=== PATIENT | female | born 1945 | race African-American/Black ===

== ENCOUNTER 2017-02-07 15:01 | Emergency (ER) | payer OTHER, MEDICAID ==
[~2017-02-07] VITALS: Ht 162.6 cm; Wt 93.5 kg
[~2017-02-07 15:01] MED LIST: AMLO10 PO; LISI-515 PO
[2017-02-07 15:27] VITALS: BP 196/95; PULSE 76; RESP 16; TEMP 98.6; O2SAT 99
--- NOTE | 2017-02-07 15:39 | PD ---
Physical Exam Date Seen by Provider: Feb 07, 2017 Time Seen by Provider: 15:38 Narrative 71 yo female here for right sided headaches since AM. Woke up like this. pain is 8/10. No CVA or ACS history. No injury. Pain comes and goes. Not going away. Seen by Urgent care and sent here for eval. Vitals stable in triage. Awaiting bed placement. Data Data Last Documented VS Vital Signs Date Time Temp Pulse Resp B/P (MAP) Pulse Ox O2 Delivery O2 Flow Rate FiO2 02/07/17 15:27 98.6 76 16 196/95 (128) 99 Room Air [facility] Medical Record Reviewed: Yes Supervised Visit with RAHEL: No Ken Lemus Feb 07, 2017 15:39
[2017-02-07 16:00] LABS: AUTOMATED NEUTROPHIL # 2.4 TH/MM3 (1.8-7.7); BASOPHIL % 0.8 % (0.0-2.0); EOSINOPHIL % 1.1 % (0.0-4.0); HEMATOCRIT 38.2 % (35.0-46.0); HEMO FLAGS DIFF FINAL; LYMPH % 37.1 % (9.0-44.0); LYMPHOCYTE # 1.6 TH/MM3 (1.0-4.8); MEAN CELL VOLUME 89.7 FL (80.0-100.0); MEAN CORPUSCULAR HEMOGLOBIN 29.4 PG (27.0-34.0); MEAN CORPUSCULAR HGB CONC 32.7 % (32.0-36.0); MONO % 5.3 % (0.0-8.0); NEUT % 55.7 % (16.0-70.0); PLATELET COUNT 220 TH/MM3 (150-450); RED BLOOD COUNT 4.26 MIL/MM3 (4.00-5.30); RED CELL DISTRIBUTION WIDTH 14.1 % (11.6-17.2); WHITE BLOOD COUNT 4.2 TH/MM3 (4.0-11.0)
[2017-02-07] MEDS ORDERED: SODIUM CHLOR 0.9% 1000 ML INJ 1,000 ML IV ONE (16:23)
[2017-02-07 16:26] LABS: BICARBONATE 29.5 MEQ/L (21.0-32.0); POTASSIUM 3.7 MEQ/L (3.5-5.1)
[2017-02-07] MEDS ORDERED: diphenhydrAMINE HCL 50 MG/ML VIAL IVP ONE (16:30)
[2017-02-07] MEDS ORDERED: PROCHLORPERAZINE INJ 10 MG/2 ML VIAL IVP ONE (16:30)
[2017-02-07] MEDS ORDERED: SODIUM CHLORIDE 0.9% FLUSH 10 ML FLUSH IVF PRN (16:30)
--- NOTE | 2017-02-07 16:31 | PD ---
HPI Chief Complaint: Headache Time Seen by Provider: 16:17 Travel History International Travel<30 days: No Contact w/Intl Traveler<30days: No Traveled to known affect area: No History of Present Illness HPI 71-year-old female presents to the emergency department for evaluation of headache that started this morning when she woke up. Patient states is in the right occipital head. She states that it'll calm in waves. Patient states last a few seconds, will go away, and then return. Patient states she had similar headaches back in the 90s. She was given a medications none had any problem until today. She denies any fevers or chills. No weakness or syncope. No chest pressure is breath. No visual changes. No abdominal pain. No nausea, vomiting, diarrhea. She reports history of hypertension and arthritis. She takes amlodipine and a pain medication for arthritis. Patient denies photophobia or phonophobia. PFSH Past Medical History Arthritis: Yes Autoimmune Disease: Yes (RHEUMATOID ARTHRITIS) Blood Disorders: No Cancer: No Cardiovascular Problems: Yes (HTN) High Cholesterol: Yes Diminished Hearing: No Endocrine: No Gastrointestinal Disorders: Yes Genitourinary: No Headaches: Yes Hypertension: Yes Musculoskeletal: Yes Neurologic: Yes Psychiatric: No Respiratory: No Immunizations Current: Yes Menopausal: Yes Past Surgical History Abdominal Surgery: Yes (HERNIA) AICD: No Appendectomy: Yes Arteriovenous Shunt: No Gynecologic Surgery: Yes Hysterectomy: Yes Insulin Pump: No Joint Replacement: No Pacemaker: No Other Surgery: Yes Social History Alcohol Use: No Tobacco Use: No Substance Use: No Allergies-Medications (Allergen,Severity, Reaction): Coded Allergies: penicillin V (Unverified Allergy, Severe, MOUTH FOAMING, 12/19/16) penicillin G (Unverified Allergy, Unknown, 12/19/16) "foam at the mouth" Reported Meds & Prescriptions Reported Meds & Active Scripts Active Reported Citrucel (Methylcellulose) 500 Mg Tab 2 Tab PO DAILY Vitamin D-1000 (Cholecalciferol) 1,000 Unit Tab 1,000 Units PO DAILY Lisinopril 20 Mg Tab 20 Mg PO HS Norvasc (Amlodipine Besylate) 10 Mg Tab 10 Mg PO DAILY Review of Systems Except as stated in HPI: all other systems reviewed are Neg Physical Exam Narrative GENERAL: Well-nourished, well-developed female patient, ambulatory. Afebrile. Patient will wince when the pain comes that'll be fine, and then a couple minutes later, she will wince again. SKIN: Focused skin assessment warm/dry. HEAD: Normocephalic. Atraumatic. EYES: No scleral icterus. No injection or drainage. PERRLA. EOM intact. ENT: Mucosa pink and moist. No erythema or exudates. No uvular edema. No uvular , palatal, or tonsillar deviation. Airway patent. Nasal turbinates appear normal without nasal blood, purulent drainage or septal hematoma. Bilateral tympanic membranes are clear without erythema or perforation. NECK: Supple, trachea midline. No JVD or lymphadenopathy. CARDIOVASCULAR: Regular rate and rhythm without murmurs, gallops, or rubs. RESPIRATORY: Breath sounds equal bilaterally. No accessory muscle use. Lungs sounds are clear to auscultation. GASTROINTESTINAL: Abdomen soft, non-tender, nondistended. MUSCULOSKELETAL: No cyanosis, or edema. Bilateral upper and lower extremity strength 5/5. All extremities are neurovascularly intact. BACK: Nontender without obvious deformity. No CVA tenderness. NEUROLOGICAL: Awake and alert. Cranial nerves II through XII intact. Motor and sensory grossly within normal limits. Five out of 5 muscle strength in all muscle groups. Normal speech. Finger to nose is normal bilaterally. Heel-to- josé is normal bilaterally. Data Data Last Documented VS Vital Signs Date Time Temp Pulse Resp B/P (MAP) Pulse Ox O2 Delivery O2 Flow Rate FiO2 02/07/17 18:12 76 20 180/88 (118) 97 Room Air 02/07/17 15:27 98.6 Orders Orders Complete Blood Count With Diff (02/07/17 15:39) Basic Metabolic Panel (Bmp) (02/07/17 15:39) Ct Brain W/O Iv Contrast(Rout) (02/07/17 15:39) Ecg Monitoring (02/07/17 16:23) Iv Access Insert/Monitor (02/07/17 16:23) Oximetry (02/07/17 16:23) Sodium Chloride 0.9% Flush (Ns Flush) (02/07/17 16:30) Prochlorperazine Inj (Compazine Inj) (02/07/17 16:30) Diphenhydramine Inj (Benadryl Inj) (02/07/17 16:30) Sodium Chlor 0.9% 1000 Ml Inj (Ns 1000 M (02/07/17 16:23) Ketorolac Inj (Toradol Inj) (02/07/17 17:30) Labs Laboratory Tests Test 02/07/17 15:40 White Blood Count 4.2 TH/MM3 Red Blood Count 4.26 MIL/MM3 Hemoglobin 12.5 GM/DL Hematocrit 38.2 % Mean Corpuscular Volume 89.7 FL Mean Corpuscular Hemoglobin 29.4 PG Mean Corpuscular Hemoglobin Concent 32.7 % Red Cell Distribution Width 14.1 % Platelet Count 220 TH/MM3 Mean Platelet Volume 9.2 FL Neutrophils (%) (Auto) 55.7 % Lymphocytes (%) (Auto) 37.1 % Monocytes (%) (Auto) 5.3 % Eosinophils (%) (Auto) 1.1 % Basophils (%) (Auto) 0.8 % Neutrophils # (Auto) 2.4 TH/MM3 Lymphocytes # (Auto) 1.6 TH/MM3 Monocytes # (Auto) 0.2 TH/MM3 Eosinophils # (Auto) 0.0 TH/MM3 Basophils # (Auto) 0.0 TH/MM3 CBC Comment DIFF FINAL Differential Comment Blood Urea Nitrogen 11 MG/DL Creatinine 0.81 MG/DL Random Glucose 91 MG/DL Calcium Level 9.8 MG/DL Sodium Level 140 MEQ/L Potassium Level 3.7 MEQ/L Chloride Level 103 MEQ/L Carbon Dioxide Level 29.5 MEQ/L Anion Gap 8 MEQ/L Estimat Glomerular Filtration Rate 85 ML/MIN MDM Medical Decision Making Medical Screen Exam Complete: Yes Emergency Medical Condition: Yes Medical Record Reviewed: Yes Interpretation(s) Last Impressions Head CT 02/07/17 1539 Signed Impressions: Service Date/Time: Tuesday, February 07, 2017 16:40 - CONCLUSION: Normal examination. Momo Henley MD Differential Diagnosis Tension headache versus migraine headache versus cluster headache versus intracranial abnormality Narrative Course 71-year-old female presents to the emergency department for evaluation of headache that started this morning. Patient states it'll come and ago and then return back in a couple of minutes. It is in the occipital right head. CBC, BMP, CT of the brain are ordered and pending. Patient is given normal saline 1 L IV bolus, Compazine 10 mg IV, Benadryl 25 mg IV. CBC is unremarkable. BMP is unremarkable. CT of the brain is normal. Patient is given additional Toradol 30 mg IV. Patient was also evaluated with my attending physician, Dr. Freedman. Patient was discharged with a prescription for muscle relaxants, Robaxin. She is instructed to follow up neurologist. She verbalizes agreement and understanding. The patient was discharged in stable condition with instructions, including return instructions and follow up instructions. Diagnosis Primary Impression: Headache Qualified Codes: R51 - Headache Referrals: Primary Care Physician call for appointment Patient Instructions: Acute Headache (ED), General Instructions Additional Instructions: Take Robaxin as directed as needed. [id number]-[id number] Tylenol or ibuprofen. Follow-up with your primary care physician. Return to the emergency department for any acute worsening of symptoms. Med/Other Pt SpecificInfo: Prescription(s) given Scripts Methocarbamol (Robaxin) 750 Mg Tab 750 MG PO TID Y for MUSCLE SPASM, #21 TAB 0 Refills Prov: Dolores Andrew 02/07/17 Disposition: 01 DISCHARGE HOME Condition: Stable Dolores Andrew Feb 07, 2017 16:31
--- NOTE | 2017-02-07 17:00 | RADRPT ---
EXAM DATE/TIME: 02/07/2017 16:40 [facility] COMPARISON: CT BRAIN W/O CONTRAST, March 10, 2016, 6:03. INDICATIONS : Head pain due to headaches. RADIATION DOSE: 40.13 CTDIvol (mGy) MEDICAL HISTORY : Hypertension. Deep venous thrombosis. SURGICAL HISTORY : Appendectomy. Hysterectomy. ENCOUNTER: Initial ACUITY: 1 day PAIN SCALE: 10/10 LOCATION: Bilateral cranial TECHNIQUE: Multiple contiguous axial images were obtained of the head. Using automated exposure control and adj ustment of the mA and/or kV according to patient size, radiation dose was kept as low as reasonably a chievable to obtain optimal diagnostic quality images. DICOM format image data is available electro nically for review and comparison. FINDINGS: CEREBRUM: The ventricles are normal for age. No evidence of midline shift, mass lesion, hemorrhage or acute in farction. No extra-axial fluid collections are seen. POSTERIOR FOSSA: The cerebellum and brainstem are intact. The 4th ventricle is midline. The cerebellopontine angle i s unremarkable. EXTRACRANIAL: The visualized portion of the orbits is intact. SKULL: The calvaria is intact. No evidence of skull fracture. CONCLUSION: Normal examination. Momo Henley MD on February 07, 2017 at 16:58 Board Certified Radiologist. This report was verified electronically.
[2017-02-07 17:04] VITALS: O2SAT 99
[2017-02-07 17:05] VITALS: BP 175/99; PULSE 65; RESP 22; O2SAT 98
[2017-02-07] MEDS ORDERED: KETOROLAC TROMETHAMINE 30 MG/ML (IVP) VIAL IV PUSH ONE (17:30)
[2017-02-07 18:12] VITALS: BP 180/88; PULSE 76; RESP 20; O2SAT 97
[2017-02-07] MEDS ORDERED: VITA1000 PO (18:15)
[2017-02-07] MEDS ORDERED: CITR500T PO (18:15)
[2017-02-07] MEDS ORDERED: ROBA750T PO (19:02)
[2017-02-07 19:59] VITALS: BP 160/87; PULSE 75; RESP 18; O2SAT 96
== END 2017-02-07 20:25 | disposition home or self-care (01) ==
LOC: NEPE 15:01
DX: R51 Headache (principal); I10 Essential (primary) hypertension; M06.9 Rheumatoid arthritis, unspecified; E78.00 Pure hypercholesterolemia, unspecified
CPT/HCPCS: 70450; 80048; 85025; 96361; 96374; 96375; 99285; J0780; J1200; J1885; J7030

== ENCOUNTER 2017-09-11 07:41 | Emergency (ER) | payer OTHER, MEDICAID ==
[2017-09-11] MEDS: METHOCARBAMOL 500 MG TAB PO (08:30)
[2017-09-11] MEDS: IBUPROFEN 600 MG TAB PO ×2 (08:30→08:32)
== END 2017-09-11 09:56 | disposition home or self-care (01) ==
LOC: NEPD 07:41
DX: M54.5 Low back pain (principal); M25.551 Pain in right hip; I10 Essential (primary) hypertension
CPT/HCPCS: 72100; 73502; 99283

== ENCOUNTER 2017-10-28 14:49 | Emergency (ER) | payer OTHER ==
[~2017-10-28] VITALS: Ht 162.6 cm; Wt 91.5 kg
[~2017-10-28 14:49] MED LIST changes: +CITR500T PO; +IBUP-232 PO; +ROBA500T PO; +ROBA750T PO; +VITA1000 PO
[2017-10-28 14:53] VITALS: BP 152/74; PULSE 77; RESP 18; TEMP 98.7; O2SAT 100
--- NOTE | 2017-10-28 16:23 | PD ---
HPI Chief Complaint: ENT Complaint Time Seen by Provider: 15:55 Travel History International Travel<30 days: No Contact w/Intl Traveler<30days: No Traveled to known affect area: No History of Present Illness HPI 72-year-old -[place] female presents emergency department with 1 month history of increased sinus congestion, headache, pressure, postnasal drip, sore throat. Patient states she has been using [id number]-[id number] meds and home remedies without improvement. Patient denies significant fever. Patient states her cough is worse at night. Patient states no significant shortness of breath or chest pain. Throat is scratchy and painful. Patient has allergies to penicillin. PFSH Past Medical History Arthritis: Yes Autoimmune Disease: Yes Blood Disorders: No Cancer: No Cardiovascular Problems: Yes High Cholesterol: Yes Diminished Hearing: No Endocrine: No Gastrointestinal Disorders: Yes Genitourinary: No Headaches: Yes Hypertension: Yes Musculoskeletal: Yes Neurologic: Yes Psychiatric: No Respiratory: No Immunizations Current: No ?: Not Menopausal: Yes Past Surgical History Abdominal Surgery: Yes (HERNIA) AICD: No Appendectomy: Yes Arteriovenous Shunt: No Gynecologic Surgery: Yes Hysterectomy: Yes Insulin Pump: No Joint Replacement: No Pacemaker: No Other Surgery: Yes Social History Alcohol Use: No Tobacco Use: No Substance Use: No Allergies-Medications (Allergen,Severity, Reaction): Coded Allergies: penicillin V (Verified Allergy, Severe, MOUTH FOAMING, 09/11/17) penicillin G (Verified Allergy, Unknown, 09/11/17) "foam at the mouth" Reported Meds & Prescriptions Reported Meds & Active Scripts Active Ibuprofen 600 Mg Tab 600 Mg PO Q6H PRN Robaxin (Methocarbamol) 500 Mg Tab 500 Mg PO QID PRN Robaxin (Methocarbamol) 750 Mg Tab 750 Mg PO TID PRN Reported Citrucel (Methylcellulose) 500 Mg Tab 2 Tab PO DAILY Vitamin D-1000 (Cholecalciferol) 1,000 Unit Tab 1,000 Units PO DAILY Lisinopril 20 Mg Tab 20 Mg PO HS Norvasc (Amlodipine Besylate) 10 Mg Tab 10 Mg PO DAILY Review of Systems Except as stated in HPI: all other systems reviewed are Neg General / Constitutional: No: Fever Eyes: No: Visual changes HENT: Positive: Headaches, Sore Throat, Rhinitis, Rhinorrhea, Congestion, No: Vertigo, Lightheadedness, Nosebleed, Neck Stiffness, Neck Pain, Dental Difficulties, Earache Cardiovascular: No: Chest Pain or Discomfort Respiratory: Positive: Cough, No: Shortness of Breath Gastrointestinal: No: Abdominal Pain Genitourinary: No: Dysuria Musculoskeletal: No: Pain Skin: No Rash Neurologic: No: Weakness Psychiatric: No: Depression Endocrine: No: Polydipsia Hematologic/Lymphatic: No: Easy Bruising Physical Exam Narrative GENERAL: Patient appears in no obvious distress. She is noted to be hoarse. SKIN: Warm and dry. Normal color. Normal turgor. No rash. HEAD: Atraumatic. Normocephalic. Moderate to percussion in both frontal and maxillary sinuses EYES: Pupils equal and round. No scleral icterus. No injection or drainage. ENT: No nasal bleeding or discharge. Mucous membranes pink and moist. Posterior pharynx has erythema, cobblestoning, but no significant swelling. Postnasal drip is noted. Tonsils are not significantly swollen. TMs are dull bilaterally NECK: Trachea midline. Supple and nontender without significant lymphadenopathy. CARDIOVASCULAR: Regular rate and rhythm. RESPIRATORY: No accessory muscle use. Clear to auscultation. Breath sounds equal bilaterally. GASTROINTESTINAL: Abdomen soft, non-tender, nondistended. Hepatic and splenic margins not palpable. MUSCULOSKELETAL: Extremities without clubbing, cyanosis, or edema. No obvious deformities. NEUROLOGICAL: Awake and alert. No obvious cranial nerve deficits. Motor grossly within normal limits. Five out of 5 muscle strength in the arms and legs. Normal speech. PSYCHIATRIC: Appropriate mood and affect; insight and judgment normal. Data Data Last Documented VS Vital Signs Date Time Temp Pulse Resp B/P (MAP) Pulse Ox O2 Delivery O2 Flow Rate FiO2 10/28/17 14:53 98.7 77 18 152/74 (100) 100 MDM Medical Decision Making Medical Screen Exam Complete: Yes Emergency Medical Condition: Yes Differential Diagnosis Upper respiratory infection. Postnasal drip. Sinusitis. Allergic rhinitis. Narrative Course Patient is medically stable at time of exam. Patient is treated with Levaquin 500 mg daily for the next 10 days. Patient is given Flonase nasal spray 2 sprays each nostril daily. Patient is to use [id number] cough meds, ibuprofen, Tylenol, ice chips, and saltwater gargles as needed. Patient should follow-up if symptoms do not improve in the next week Diagnosis Primary Impression: Acute pansinusitis Qualified Codes: J01.40 - Acute pansinusitis, unspecified Patient Instructions: General Instructions, Sinusitis (ED) Additional Instructions: Patient is medically stable at time of exam. Patient is treated with Levaquin 500 mg daily for the next 10 days. Patient is given Flonase nasal spray 2 sprays each nostril daily. Patient is to use [id number] cough meds, ibuprofen, Tylenol, ice chips, and saltwater gargles as needed. Patient should follow-up if symptoms do not improve in the next week Med/Other Pt SpecificInfo: Prescription(s) given Disposition: 01 DISCHARGE HOME Condition: Stable Basim Silverio Oct 28, 2017 16:23
[2017-10-28] MEDS ORDERED: LEVA500T33 PO (16:24)
[2017-10-28] MEDS ORDERED: FLUT1SPR5 EACH NARE (16:24)
== END 2017-10-28 16:36 | disposition home or self-care (01) ==
LOC: NEPD 14:49
DX: J01.40 Acute pansinusitis, unspecified (principal); R09.82 Postnasal drip; R51 Headache; R09.81 Nasal congestion; M19.90 Unspecified osteoarthritis, unspecified site; I10 Essential (primary) hypertension; R05 Cough
CPT/HCPCS: 99283